=== PATIENT | male | born 1990 | race Caucasian/White ===

== ENCOUNTER 2018-05-07 04:08 | Emergency (ER) | payer OTHER ==
[2018-05-07] MEDS ORDERED: HYDROcodone/Acetaminophen 7.5/325 mg Tablet ONE (04:21)
[2018-05-07] MEDS ORDERED: Adacel (T-DAP) 0.5 ML VIAL ONE (06:20)
[2018-05-07] MEDS ORDERED: Bacitracin Zinc 1 Packet ONE (06:23)
== END 2018-05-07 06:42 | disposition home or self-care (01) ==
LOC: ERS 04:08
DX: T23.051A Burn of unspecified degree of right palm, initial encounter (principal); F17.220 Nicotine dependence, chewing tobacco, uncomplicated; Z23 Encounter for immunization; X08.8XXA Exposure to other specified smoke, fire and flames, initial encounter
CPT/HCPCS: 90471; 90715